=== PATIENT | male | born 1975 | race Caucasian/White ===

== ENCOUNTER 2019-03-13 13:59 | Emergency (ER) | payer SELFPAY ==
[2019-03-13 14:31] VITALS: BP 147/107; PULSE 90; RESP 16; TEMP 36.9; O2SAT 97; BMI 33.4
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
[2019-03-13 16:43] VITALS: BP 122/94; PULSE 77; RESP 18; O2SAT 96
== END 2019-03-13 16:28 | disposition home or self-care (01) ==
PROVIDERS: Emergency Provider Nurse Practitioner Family; Family Provider Family Medicine
DX: S16.1XXA Strain of muscle, fascia and tendon at neck level, initial encounter (principal); M25.512 Pain in left shoulder; V89.2XXA Person injured in unspecified motor-vehicle accident, traffic, initial encounter; Z87.891 Personal history of nicotine dependence
CPT/HCPCS: 71046; 72040; 73030; 99282

== ENCOUNTER 2019-10-08 19:37 | Emergency (ER) | payer BC, SELFPAY ==
[2019-10-08 19:41] VITALS: BP 174/114; PULSE 84; RESP 18; TEMP 36.3; O2SAT 97; BMI 38.0
[2019-10-08 19:50] VITALS: PULSE 85; RESP 16; O2SAT 99
--- NOTE | 2019-10-08 19:51 | ECG_ITS ---
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 Measurements Intervals [place] Rate: 80 P: 31 TN: 164 QRS: 72 QRSD: 105 T: 39 QT: 361 QTc: 418 Interpretive Statements SINUS RHYTHM Compared to ECG 05/19/2017 02:44:21 No significant changes Electronically Signed On 10-09-2019 12:43:25 CDT by Samantha Ordoñez M.D. [id number]
--- NOTE | 2019-10-08 19:53 | XRR_ITS ---
PROCEDURE INFORMATION: Exam: XR Chest, 1 View Exam date and time: 10/08/2019 8:22 PM Age: 43 years old Clinical indication: Chest pain; Additional info: Cp TECHNIQUE: Imaging protocol: XR of the chest Views: 1 view. COMPARISON: CR XR chest 2V* [id number] 03/13/2019 3:03 PM FINDINGS: Lungs: Unremarkable. No consolidation. Pleural space: Unremarkable. No pleural effusion. No pneumothorax. Heart/Mediastinum: Unremarkable. No cardiomegaly. Bones/joints: Unremarkable. XR/XR chest 1V [id number] IMPRESSION: No acute findings.
[2019-10-08 19:59] LABS: Basophils # 0.1 10^3/uL (0.0-0.1); Eosinophils # 0.1 10^3/uL (0.0-0.8); Eosinophils % 1.7 %; Hematocrit 46.5 % (42.0-52.0); Hemoglobin 15.6 g/dL (11.7-16.6); Lymphocytes # 3.7 10^3/uL (0.8-4.8); Lymphocytes % 44.1 %; Mean Corpuscular HGB Conc 33.5 g/dL (30.0-36.0); Mean Corpuscular Volume 83.3 fL (80-94); Mean Platelet Volume 9.3 fL (7.4-10.4); Monocytes # 0.6 10^3/uL (0.2-0.9); Monocytes % 7.4 %; Neutrophils # 3.76 10^3/uL (1.8-7.7); Neutrophils % 45.4 %; Nucleated Red Blood Cells % 0 %; Platelet Count 342 10^3/cmm (130-400); Red Blood Count 5.58 10^6/uL (4.1-5.3); White Blood Count 8.3 10^3/uL (4.0-10.0)
[2019-10-08 20:15] LABS: Alanine Aminotransferase 88 U/L (0-41); Albumin Level 4.7 g/dL (3.5-5.2); Alkaline Phosphatase 89 IU/L (40-130); Anion Gap 13.9 (5-19); Aspartate Amino Transferase 44 U/L (0-40); Blood Urea Nitrogen 13 mg/dL (6-20); Calcium 9.6 mg/dL (8.5-10.5); Carbon Dioxide 24 mmol/L (22-29); Chloride 103 mmol/L (98-107); D Dimer 0.33 ug/mIFEU (0-0.59); Glomerular Filtration Rate 81.6 mL/min (90-130); Glucose 133 mg/dL (65-115); Osmolality Calculated 282 mOsm/kg (285-295); Potassium 3.9 mmol/L (3.5-5.1); Sodium 137 mmol/L (136-145); Total Bilirubin 0.3 mg/dL (0.15-1.2); Total Protein 6.7 g/dL (6.6-8.7)
[2019-10-08 20:16] LABS: Troponin(5th) Baseline 6 ng/L (0-15)
[2019-10-08 20:53] VITALS: BP 119/90; PULSE 82; RESP 18; O2SAT 96
[2019-10-08 21:10] VITALS: BP 127/93; PULSE 83; RESP 18; O2SAT 96
--- NOTE | 2019-10-09 04:44 | ED_ITS ---
HPI - Chest Pain General: Chief Complaint: Chest Pain Stated Complaint: cp, arm tingling, dizzy Time Seen by Provider: 10/08/19 19:51 History of Present Illness: HPI narrative: 43-year-old male presents with a week of chest pain on and off. It was worse today. He has not had significant shortness of breath. The pain does not worsen with exertion, in fact he feels more of the arm tingling he gets, and discomfort while sitting, and at night. He has not associated with meals. No long car trips recently. He has had some cramping to mainly his left calf. No edema. No cough. No fever. MD complaint: chest pain Onset (ago): day(s) Timing of current episode: episodic Prior episodes: Yes Onset: during rest Pain location: left chest Pain radiation: left arm Severity: moderate Quality: aching Relieving factors: nothing Associated symptoms: Deny abdominal pain, dyspnea, fever(s), palpitations or vomiting Review of Systems Const: Denies: fever(s) Eyes: Denies: change in vision or blurry vision ENMT: Denies: odynophagia, swelling of lips/tongue, bleeding gums or sinus pain Card: Reports: chest pain; Denies: palpitations, irregular heart rhythm, edema or swelling of feet/ankles Resp: Denies: dyspnea GI: Denies: abdominal pain or vomiting : Denies: difficulty urinating, urinary urgency or hematuria Musc: Denies: neck pain, back pain, joint redness or joint warmth Skin/Breast: Denies: rash, pruritus or erythema Neuro: Denies: headache(s), dizziness, vertigo or confusion Psych: Denies: anxiety or visual hallucinations PFSH ED PFSH: Social History Smoking and tobacco status: former smoker Physical Exam Const: GENERAL APPEARANCE: well developed ORIENTATION/CONSCIOUSNESS: Yes oriented to person, Yes oriented to place and Yes oriented to time HENMT: COMMON NORMALS: normocephalic, external ears normal and Normal external nose present HEAD & SCALP: normocephalic FACE & SINUS: normal facial exam NOSE: Normal external nose present and No nasal discharge present EXTERNAL EAR: Yes external ears normal MOUTH: tongue normal Eye: COMMON NORMALS: Equal, round and reactive pupils present, EOMs intact bilaterally and conjunctivae normal EYELID: eyelids normal CONJUNCTIVA: Yes conjunctivae normal PUPIL: Yes Equal, round and reactive pupils present Neck/C-Spine: GENERAL: No tracheal deviation Chest: COMMONS NORMALS: normal inspection of the chest CHEST: No tenderness Resp: COMMON NORMALS: clear to auscultation bilaterally EFFORT & INSPECTION: No tachypneic, No respiratory distress, No retractions, No uses accessory muscles and No tracheal deviation AUSCULTATION: clear to auscultation bilaterally, no rhonchi, no wheezes and lung sounds not diminished Cardio: COMMON NORMALS: regular rate and regular rhythm RATE: regular rate RHYTHM: regular rhythm HEART SOUNDS: no murmurs PERIPHERAL PULSES: radial pulses present GI: INSPECTION: No abdominal distension AUSCULTATION: No Hyperactive bowel sounds present and No Hypoactive bowel sounds present PALPATION: No Guarding due to palpation present (GI) and No Rigid due to palpation PERCUSSION: no dullness to percussion and no tympanic to percussion Neuro: SENSORIUM/ORIENTATION: Yes oriented to person, Yes oriented to place and Yes oriented to time Psych: COMMON NORMALS: mental status grossly normal Skin: COMMON NORMALS: no rashes or lesions noted GENERAL SKIN EXAM: no rashes or lesions noted Course Vital Signs: Vital signs: Vital Signs Temperature 97.3 F L 10/08/19 19:41 Pulse Rate 83 10/08/19 21:10 Respiratory Rate 18 10/08/19 21:10 Blood Pressure 127/93 10/08/19 21:10 Pulse Oximetry 96 10/08/19 21:10 MDM - Chest Pain MDM Narrative: Medical decision making narrative: Patient with no prior history of coronary disease that we know of. He presents with chest discomfort on and off for the past week, worse tonight. His white blood cell count is 8.3. Hemoglobin 15.6. His troponin is negative. His chest x-ray is negative. He was hypertensive on arrival, and this improved on its own. He did not require treatment. Lab Data: Labs: Lab Results 10/08/19 10/08/19 10/08/19 Range/Units 18:50 18:50 18:50 WBC 8.3 (4.0-10.0) 10^3/ uL RBC 5.58 H (4.1-5.3) 10^6/u L Hgb 15.6 (11.7-16.6) g/dL Hct 46.5 (42.0-52.0) % MCV 83.3 (80-94) fL MCH 28.0 (28.0-34.0) pg MCHC 33.5 (30.0-36.0) g/dL RDW 13.0 (12.1-15.1) % Plt Count 342 (130-400) 10^3/c mm MPV 9.3 (7.4-10.4) fL Neut % (Auto) 45.4 % Lymph % (Auto) 44.1 % Winkler % (Auto) 7.4 % Eos % (Auto) 1.7 % Baso % (Auto) 1.0 % Neut # (Auto) 3.76 (1.8-7.7) 10^3/u L Lymph # (Auto) 3.7 (0.8-4.8) 10^3/u L Winkler # (Auto) 0.6 (0.2-0.9) 10^3/u L Eos # (Auto) 0.1 (0.0-0.8) 10^3/u L Baso # (Auto) 0.1 (0.0-0.1) 10^3/u L Nucleated RBC % (a uto) 0 % Nucleated RBCs # 0.0 /100WBC D-Dimer (0-0.59) ug/mIFE U Sodium 137 (136-145) mmol/L Potassium 3.9 (3.5-5.1) mmol/L Chloride 103 (98-107) mmol/L Carbon Dioxide 24 (22-29) mmol/L Anion Gap 13.9 (5-19) BUN 13 (6-20) mg/dL Creatinine 1.0 (0.7-1.2) mg/dL GFR Calculation 81.6 L (90-130) mL/min Glucose 133 H (65-115) mg/dL Calculated Osmolal ity 282 L (285-295) mOsm/k g Calcium 9.6 (8.5-10.5) mg/dL Total Bilirubin 0.3 (0.15-1.2) mg/dL AST 44 H (0-40) U/L ALT 88 H (0-41) U/L Alkaline Phosphata se 89 (40-130) IU/L Troponin T Baselin e 6 (0-15) ng/L Total Protein 6.7 (6.6-8.7) g/dL Albumin 4.7 (3.5-5.2) g/dL Globulin 2.0 (1.3-4.6) g/dL 10/08/19 Range/Units 18:50 WBC (4.0-10.0) 10^3/ uL RBC (4.1-5.3) 10^6/u L Hgb (11.7-16.6) g/dL Hct (42.0-52.0) % MCV (80-94) fL MCH (28.0-34.0) pg MCHC (30.0-36.0) g/dL RDW (12.1-15.1) % Plt Count (130-400) 10^3/c mm MPV (7.4-10.4) fL Neut % (Auto) % Lymph % (Auto) % Winkler % (Auto) % Eos % (Auto) % Baso % (Auto) % Neut # (Auto) (1.8-7.7) 10^3/u L Lymph # (Auto) (0.8-4.8) 10^3/u L Winkler # (Auto) (0.2-0.9) 10^3/u L Eos # (Auto) (0.0-0.8) 10^3/u L Baso # (Auto) (0.0-0.1) 10^3/u L Nucleated RBC % (a uto) % Nucleated RBCs # /100WBC D-Dimer 0.33 (0-0.59) ug/mIFE U Sodium (136-145) mmol/L Potassium (3.5-5.1) mmol/L Chloride (98-107) mmol/L Carbon Dioxide (22-29) mmol/L Anion Gap (5-19) BUN (6-20) mg/dL Creatinine (0.7-1.2) mg/dL GFR Calculation (90-130) mL/min Glucose (65-115) mg/dL Calculated Osmolal ity (285-295) mOsm/k g Calcium (8.5-10.5) mg/dL Total Bilirubin (0.15-1.2) mg/dL AST (0-40) U/L ALT (0-41) U/L Alkaline Phosphata se (40-130) IU/L Troponin T Baselin e (0-15) ng/L Total Protein (6.6-8.7) g/dL Albumin (3.5-5.2) g/dL Globulin (1.3-4.6) g/dL Discharge Plan Discharge Patient Disposition: Home Clinical Impression: Chest pain Qualifiers: Chest pain type: unspecified Qualified Code(s): R07.9 - Chest pain, unspecified Condition: Stable Prescriptions: No Action No Known Home Medications RF: 0 Discharge Orders: Discharge Order (Routine); Ordered 10/08/19 Ordered By: Cordell Mendez Referrals: Akin Gasca MD [Primary Care Provider] - 4-7 days Patient Instructions: Chest Pain (ED) Activity Restrictions/Additional Instructions: Troponin enzymes were negative today indicating no acute heart attack. Check your blood pressure twice daily for the next several days and report numbers to your physician. Return for worsening chest discomfort, shortness of breath, other concerning symptoms. 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
== END 2019-10-08 21:12 | disposition home or self-care (01) ==
PROVIDERS: Emergency Medicine; Emergency Provider Emergency Medicine; PCP Family Medicine
DX: R07.9 Chest pain, unspecified (principal); Z87.891 Personal history of nicotine dependence
CPT/HCPCS: 12345; 71045; 80053; 84484; 85025; 85378; 93005; 99283; 99284

== ENCOUNTER 2021-07-31 10:03 | Outpatient (CLI) | payer OTHER, SELFPAY ==
--- NOTE | 2021-07-31 | XR_ITS ---
WS: [id number] Cervical spine, AP, AP odontoid, lateral views in flexion, extension and neutral position, 07/31/2021 Clinical Data: CHRONIC NECK PAIN WITH NORMAL NEUROLOGICAL EXAMINATION Comparison: Cervical spine, 03/13/2019. Findings: No compression fractures are seen. The disc heights are normal. There is a small spur of th e anterior inferior C3 vertebral body. There is no prevertebral soft tissue swelling. The odontoid is unremarkable. The soft tissues of the neck and the lung apices are normal. On flexion and extension there is no limitation of motion or subluxation. XR/XR cervical spine 4-5V [id number] Impression: 1. Minimal spur of anterior inferior aspect of C3 vertebral body. 2. No limitation of motion or subluxation on flexion or extension.
== END 2021-07-31 10:04 | disposition home or self-care (01) ==
LOC: RADOUTREAD 08-01 10:12
PROVIDERS: PCP Family Medicine; Visit Provider Family Medicine
DX: M54.2 Cervicalgia (principal)
CPT/HCPCS: 72050

== ENCOUNTER 2021-08-21 17:53 | Emergency (ER) | payer BC, SELFPAY ==
[2021-08-21 18:09] VITALS: BP 150/100; PULSE 80; RESP 16; TEMP 36.9; O2SAT 97; BMI 38.4
--- NOTE | 2021-08-21 18:09 | ECG_ITS ---
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 Measurements Intervals [place] Rate: 74 P: 39 WV: 156 QRS: 60 QRSD: 101 T: 42 QT: 374 QTc: 416 Interpretive Statements SINUS RHYTHM INTERPRETATION BASED ON A DEFAULT AGE OF 40 YEARS Compared to ECG 10/08/2019 19:46:14 No significant changes Electronically Signed On 08-21-2021 22:30:26 CDT by Emerita Marr M.D. [email or web address].VisibleGains/store/NU/[id number] f
--- NOTE | 2021-08-21 18:09 | XRR_ITS ---
PROCEDURE INFORMATION: Exam: XR Chest Exam date and time: 08/21/2021 6:32 PM Age: 45 years old Clinical indication: Chest wall pain; Additional info: Cp TECHNIQUE: Imaging protocol: Radiologic exam of the chest. Views: 1 view. COMPARISON: CR XR chest 1V [id number] 10/08/2019 8:13 PM FINDINGS: Lungs: Unremarkable. No consolidation. Pleural spaces: Unremarkable. No pleural effusion. No pneumothorax. Heart/Mediastinum: Unremarkable. No cardiomegaly. Bones/joints: Unremarkable. XR/XR chest 1V portable [id number] IMPRESSION: No acute findings.
[2021-08-21 18:37] LABS: Basophils # 0.1 10^3/uL (0.0-0.1); Basophils % 0.7 %; Eosinophils # 0.1 10^3/uL (0.0-0.8); Eosinophils % 1.4 %; Hematocrit 44.5 % (42.0-52.0); Hemoglobin 15.4 g/dL (11.7-16.6); Lymphocytes # 2.4 10^3/uL (0.8-4.8); Lymphocytes % 26.2 %; Mean Corpuscular HGB Conc 34.6 g/dL (30.0-36.0); Mean Corpuscular Volume 80.9 fl (80-94); Mean Platelet Volume 9.6 fL (7.4-10.4); Monocytes # 0.7 10^3/uL (0.2-0.9); Monocytes % 7.4 %; Nucleated Red Blood Cells % 0 %; Platelet Count 355 10^3/cmm (130-400); Red Cell Distribution Width 13.4 % (12.1-15.1); White Blood Count 9.1 10^3/uL (4.0-10.0)
[2021-08-21 18:53] LABS: Troponin(5th) Baseline 8 ng/L (0-15)
[2021-08-21 19:47] LABS: Chloride 94 mmol/L (98-107); Globulin 6.4 g/dL (1.3-4.6); Glucose 156 mg/dL (65-115); Sodium 122 mmol/L (136-145); Total Bilirubin 0.5 mg/dL (0.15-1.2); Total Protein 9.4 g/dL (6.6-8.7)
[2021-08-21 19:59] LABS: Alanine Aminotransferase 52 U/L (0-41); Alkaline Phosphatase 121 IU/L (40-130); Anion Gap 9.8 (5-19); Aspartate Amino Transferase 53 U/L (0-40); Blood Urea Nitrogen 12 mg/dL (6-20); Calcium 8.8 mg/dL (8.5-10.5); Carbon Dioxide 23 mmol/L (22-29); Glomerular Filtration Rate 72.4 mL/min (90-130); Osmolality Calculated 257 mOsm/kg (285-295); Potassium 4.8 mmol/L (3.5-5.1)
--- NOTE | 2021-08-21 20:09 | ECG_ITS ---
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 Measurements Intervals [place] Rate: 69 P: 25 [place]: 164 QRS: 66 QRSD: 100 T: 42 QT: 391 QTc: 419 Interpretive Statements SINUS RHYTHM Compared to ECG 08/21/2021 18:08:35 No significant changes Electronically Signed On 08-21-2021 22:41:16 CDT by Emerita Marr M.D. [email or web address]/store/[id number]
--- NOTE | 2021-08-21 21:36 | W.ED.GENADLT ---
HPI - General Adult General: Chief complaint: General Medical Stated complaint: chest pain; n/v Time Seen by Provider: 08/21/21 21:20 Source: patient Mode of arrival: ambulatory Limitations: no limitations History of Present Illness: 45-year-old male states that over the last week he has been having body aches chills low-grade fevers. He states he been also having a cough and some sharp left-sided chest pain. States the pain is currently a 2 out of 10 and sharp in nature. He has had some mild shortness of breath. He states he had COVID roughly 5 to 6 months ago and has not really felt right since then. Denies any vomiting or diarrhea denies any headache. Associated symptoms: Reports chest pain; Deny headache(s), nausea, rash or vomiting Review of Systems Const: Reports: chills and body aches Eyes: Denies: blurry vision or eye discomfort ENMT: Denies: throat pain or dental pain Card: Reports: chest pain Resp: Reports: non-productive cough GI: Denies: abdominal pain, nausea, vomiting or diarrhea : Denies: dysuria Musc: Denies: neck pain or back pain Skin/Breast: Denies: rash Neuro: Denies: headache(s) Psych: Denies: depression Fito/Lymph: Denies: easy bruising All/Imm: Denies: urticaria PFSH ED PFSH: Medical History No pertinent past medical history Social History Smoking and tobacco status: former smoker Physical Exam Const: COMMON NORMALS: no acute distress, patient oriented x3 and healthy appearing HENMT: COMMON NORMALS: normocephalic and atraumatic HEAD & SCALP: normocephalic and atraumatic Eye: COMMON NORMALS: Equal, round and reactive pupils present and EOMs intact bilaterally PUPIL: Yes Equal, round and reactive pupils present Neck/C-Spine: COMMON NORMALS: full ROM and supple Chest: COMMONS NORMALS: normal inspection of the chest and normal palpation of entire chest wall Resp: COMMON NORMALS: normal respiratory effort, No retractions, No use of accessory muscles and clear to auscultation bilaterally AUSCULTATION: clear to auscultation bilaterally Cardio: COMMON NORMALS: regular rate, regular rhythm and No murmurs present (Cardio) RATE: regular rate RHYTHM: regular rhythm GI: COMMON NORMALS: Normal to inspection, nondistended, normoactive bowel sounds present, Soft to palpation, non-tender and no masses PALPATION: Yes Soft to palpation Extremity: COMMON NORMALS: normal to inspection and full ROM Neuro: COMMON NORMALS: patient oriented x3, moves all extremities and no focal motor deficits Psych: COMMON NORMALS: mental status grossly normal, Normal thought process present and cooperative THOUGHT PROCESS: Normal thought process present Skin: COMMON NORMALS: no rashes or lesions noted and no wounds GENERAL SKIN EXAM: no rashes or lesions noted Course Vital Signs: Vital signs: Vital Signs Temperature 98.4 F 08/21/21 18:09 Pulse Rate 80 08/21/21 18:09 Respiratory Rate 16 08/21/21 18:09 Blood Pressure 150/100 08/21/21 18:09 Pulse Oximetry 97 08/21/21 18:09 [facility] - General Adult Medical Decision Making Patient presents for chest pain that is atypical in nature. Also having some slight dyspnea his D-dimer here is negative no signs of aortic dissection or pulm embolism troponins are normal as well no signs of acute coronary syndrome he is well-appearing here feels improved he is stable for discharge and return if worsening. Lab Data : 08/21/21 18:24 08/21/21 22:52 Radiology Impressions Chest X-Ray 08/21/21 18:09 IMPRESSION: No acute findings. Laboratory Results WBC 9.1 10^3/uL (4.0-10.0) 08/21/21 18:24 RBC 5.50 10^6/uL (4.1-5.3) H 08/21/21 18:24 Hgb 15.4 g/dL (11.7-16.6) 08/21/21 18:24 Hct 44.5 % (42.0-52.0) 08/21/21 18:24 MCV 80.9 fl (80-94) 08/21/21 18:24 MCH 28.0 pg (28.0-34.0) 08/21/21 18:24 MCHC 34.6 g/dL (30.0-36.0) 08/21/21 18:24 RDW 13.4 % (12.1-15.1) 08/21/21 18:24 Plt Count 355 10^3/cmm (130-400) 08/21/21 18:24 MPV 9.6 fL (7.4-10.4) 08/21/21 18:24 Neut % (Auto) 64.0 % 08/21/21 18:24 Lymph % (Auto) 26.2 % 08/21/21 18:24 [place] % (Auto) 7.4 % 08/21/21 18:24 Eos % (Auto) 1.4 % 08/21/21 18:24 Baso % (Auto) 0.7 % 08/21/21 18: Neut # (Auto) 5.80 10^3/uL (1.8-7.7) 08/21/21 18: Lymph # (Auto) 2.4 10^3/uL (0.8-4.8) 08/21/21 18:24 [place] # (Auto) 0.7 10^3/uL (0.2-0.9) 08/21/21 18: Eos # (Auto) 0.1 10^3/uL (0.0-0.8) 08/21/21 18: Baso # (Auto) 0.1 10^3/uL (0.0-0.1) 08/21/21 18: Nucleated RBC % (auto) 0 % 08/21/21 18: Nucleated RBCs # 0.0 /100WBC 08/21/21 18:24 D-Dimer 0.37 ug/mIFEU (0-0.59) 08/21/21 18:24 Sodium 140 mmol/L (136-145) D 08/21/21 22:52 Potassium 3.6 mmol/L (3.5-5.1) 08/21/21 22:52 Chloride 107 mmol/L (98-107) 08/21/21 22:52 Carbon Dioxide 24 mmol/L (22-29) 08/21/21 22:52 Anion Gap 12.6 (5-19) 08/21/21 22:52 BUN 11 mg/dL (6-20) 08/21/21 22:52 Creatinine 0.8 mg/dL (0.7-1.2) 08/21/21 22:52 GFR Calculation 104.5 mL/min (90-130) 08/21/21 22:52 Glucose 92 mg/dL (65-115) 08/21/21 22:52 Calculated Osmolality 289 mOsm/kg (285-295) 08/21/21 22:52 Calcium 8.2 mg/dL (8.5-10.5) L 08/21/21 22:52 Total Bilirubin 0.5 mg/dL (0.15-1.2) 08/21/21 18:24 AST 53 U/L (0-40) H 08/21/21 18:24 ALT 52 U/L (0-41) H 08/21/21 18:24 Alkaline Phosphatase 121 IU/L (40-130) 08/21/21 18:24 Troponin T Baseline 8 ng/L (0-15) 08/21/21 18:24 Troponin T 120 Minute 6.00 ng/L (0-15) 08/21/21 21:19 Delta Troponin T -2.00 ABS# (0-10) L 08/21/21 21:19 Total Protein 9.4 g/dL (6.6-8.7) H 08/21/21 18:24 Albumin 3.0 g/dL (3.5-5.2) L 08/21/21 18:24 Globulin 6.4 g/dL (1.3-4.6) H 08/21/21 18:24 EKG Data EKG 1: I personally reviewed and interpreted this EKG as follows: EKG interpretation date: 08/21/21 EKG interpretation time: 21:41 Interpretation: nsr hr [address] or t wave abnormalities qrs 100 qtc 409 Computer generated interpretation: Chest X-Ray 08/21/21 18:09 IMPRESSION: No acute findings. Discharge Plan Discharge Patient Disposition: Home Clinical Impression: Chest pain Condition: Stable Prescriptions: No Action No Known Home Medications 0RF Discharge Orders: Discharge ED (Routine); Ordered 08/21/21 Ordered By: Sue Garcia Referrals: Akin Gasca MD [Primary Care Provider] - 1-3 days Discharge Diet: Advance as tolerated Discharge Activity: Resume usual activity Patient Instructions: Chest Pain (ED) Coding Level of Care Code ED Inside Sales Associate for Chg Fwd Exam Comprehensive
[2021-08-21 21:46] LABS: D Dimer 0.37 ug/mIFEU (0-0.59)
[2021-08-21] MEDS: ondansetron 2 mg/ML SDV 2 mL 4 MG IVP (22:03)
[2021-08-21] MEDS: sodium chloride 0.9% 1,000 ML 999 ML IV ×2 (22:03→22:11)
[2021-08-21 23:17] LABS: Anion Gap 12.6 (5-19); Blood Urea Nitrogen 11 mg/dL (6-20); Calcium 8.2 mg/dL (8.5-10.5); Carbon Dioxide 24 mmol/L (22-29); Chloride 107 mmol/L (98-107); Glomerular Filtration Rate 104.5 mL/min (90-130); Glucose 92 mg/dL (65-115); Osmolality Calculated 289 mOsm/kg (285-295); Potassium 3.6 mmol/L (3.5-5.1); Sodium 140 mmol/L (136-145)
[2021-08-22 00:46] LABS: Adenovirus Not Detected (NOT DETECT); Chlamydia Pneumoniae Not Detected (NOT DETECT); Coronavirus 229E,HKU1,NL63,OC4 Not Detected (NOT DETECT); Human Metapneumovirus Not Detected (NOT DETECT); Human Rhinovirus/Enterovirus Not Detected (NOT DETECT); Influenza A Not Detected (NOT DETECT); Influenza A H1 Not Detected (NOT DETECT); Influenza A H1-2009 Not Detected (NOT DETECT); Influenza A H3 Not Detected (NOT DETECT); Influenza B Not Detected (NOT DETECT); Mycoplasma Pneumoniae Not Detected (NOT DETECT); Parainfluenza Virus Type 1 Not Detected (NOT DETECT); Parainfluenza Virus Type 2 Not Detected (NOT DETECT); Parainfluenza Virus Type 3 Not Detected (NOT DETECT); Parainfluenza Virus Type 4 Not Detected (NOT DETECT); Respiratory Syncytial Virus A Not Detected (NOT DETECT); Respiratory Syncytial Virus B Not Detected (NOT DETECT); SARS-COV-2 Not Detected (NOT DETECT)
== END 2021-08-21 23:40 | disposition home or self-care (01) ==
PROVIDERS: Emergency Provider Emergency Medicine; PCP Family Medicine
DX: R07.9 Chest pain, unspecified (principal); Z87.891 Personal history of nicotine dependence
CPT/HCPCS: 71045; 80048; 80053; 84484; 85025; 85378; 87635; 93005; 96361; 96374; 99285; J2405; J7030

== ENCOUNTER 2023-04-18 19:45 | Emergency (ER) | payer BC, SELFPAY ==
[2023-04-18 19:48] VITALS: BP 147/90; PULSE 85; RESP 14; TEMP 36.8; O2SAT 95
--- NOTE | 2023-04-18 19:49 | ECG_ITS ---
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 Measurements Intervals [place] Rate: 85 P: 41 [place]: 162 QRS: 66 QRSD: 100 T: 37 QT: 354 QTc: 423 Interpretive Statements SINUS RHYTHM POSSIBLE RIGHT VENTRICULAR CONDUCTION DELAY [RSR (QR) IN V1/V2] Compared to ECG 08/21/2021 21:41:00 No significant changes Electronically Signed On 04-18-2023 23:42:48 CARDER BLANKETS by Edvin Villalba M.D. [id number]
--- NOTE | 2023-04-18 19:49 | XRR_ITS ---
PROCEDURE INFORMATION: Exam: XR Chest Exam date and time: 04/18/2023 8:24 PM Age: 47 years old Clinical indication: Angina pectoris; Patient HX: Mediastinal chest pain; No previous cardiac HX TECHNIQUE: Imaging protocol: Radiologic exam of the chest. Views: 1 view. COMPARISON: CR XR chest 1V portable [id number] 08/21/2021 6:32 PM FINDINGS: Lungs: Unremarkable. No consolidation. Pleural spaces: Unremarkable. No pleural effusion. No pneumothorax. Heart/Mediastinum: Unremarkable. No cardiomegaly. Bones/joints: There is mild degenerative disease of bilateral acromioclavicular joints. XR/XR chest 1V portable [id number] IMPRESSION: No acute cardiopulmonary process.
--- NOTE | 2023-04-18 20:11 | ED_ITS ---
HPI - Chest Pain 2 General: Chief Complaint: Chest Pain Stated Complaint: CP, Sob Time Seen by Provider: 04/18/23 20:04 Source: patient Mode of arrival: ambulatory Limitations: no limitations History of Present Illness: 47-year-old male states an hour ago he s tarted having sharp pain in the left side she states the pain lasted roughly 30 seconds he had felt hot he states and lightheaded. The pain is since resolved. He denies any shortness of breath denies any vomiting denies any diarrhea. Associated symptoms: Deny abdominal pain, dyspnea, fever(s), nausea or vomiting Review of Systems 2 Const: Denies: fever(s), chills, body aches or change in appetite ENMT: Denies: throat pain or dental pain Card: Reports: chest pain Resp: Denies: dyspnea GI: Denies: abdominal pain, nausea, vomiting or diarrhea Musc: Denies: neck pain or back pain Skin/Breast: Denies: rash Neuro: Denies: headache(s) PFSH ED 2 PFSH: Medical History No pertinent past medical history Social History Smoking and tobacco/nicotine status: former use of tobacco/nicotine Physical Exam 2 Const: COMMON NORMALS: patient oriented x3 HENMT: COMMON NORMALS: normocephalic and atraumatic HEAD & SCALP: n ormocephalic and atraumatic Eye: COMMON NORMALS: Equal, round and reactive pupils present and EOMs intact bilaterally PUPIL: Yes Equal, round and reactive pupils present Neck/C-Spine: COMMON NORMALS: full ROM and supple Chest: COMMONS NORMALS: normal inspection of the chest and normal palpation of entire chest wall Resp: COMMON NORMALS: normal respiratory effort, No retractions, No use of accessory muscles and clear to auscultation bilaterally AUSCULTATION: clear to auscultation bilaterally Cardio: COMMON NORMALS: regular rate, regular rhythm and No murmurs present (Cardio) RATE: regular rate RHYTHM: regular rhythm GI: COMMON NORMALS: Normal to inspection, nondistended, normoactive bowel sounds present, Soft to palpation, non-tender and no masses PALPATION: Yes Soft to palpation Extremity: COMMON NORMALS: normal to inspection and full ROM Neuro: COMMON NORMALS: patient oriented x3, moves all extremities and no focal motor deficits Psych: COMMON NORMALS: mental status grossly normal, Normal thought process present and cooperative THOUGHT PROCESS: Normal thought process present Skin: COMMON NORMALS: no rashes or lesions noted and no wounds GENERAL SKIN EXAM: no rashes or lesions noted Course 2 Vital Signs: Vital signs: Vital Signs Temperature 98.3 F 04/18/23 19:48 Pulse Rate 85 04/18/23 19:48 Respiratory Rate 14 04/18/23 19:48 Blood Pressure 147/90 04/18/23 19:48 Pulse Oximetry 95 04/18/23 19:48 Oxygen Delivery Me thod Room Air 04/18/23 19:48 MDM - Chest Pain Medical Decision Making Patient presents here with chest pain that lasted seconds and is atypical in nature his troponins and EKGs here are normal he has been chest pain-free here he is no signs of ACS or pulmonary embolism or dissection he is stable for discharge he is to follow-up with PCP next week and return if he has any more pain he understands agrees to plan Medical Records I reviewed the patient's medical records. Lab Data I reviewed the patient's lab results. 04/18/23 20:05 04/18/23 20:05 Radiology Impressions Chest X-Ray 04/18/23 19:49 IMPRESSION: No acute cardiopulmonary process. Laboratory Results WBC 8.45 10^3/uL (3.29-11.43) 04/18/23 20:05 RBC 5.55 10^6/uL (3.85-5.65) 04/18/23 20:05 Hgb 15.60 g/dL (11.27-16.99) 04/18/23 20:05 Hct 45.7 % (37-53) 04/18/23 20:05 MCV 82.3 fl (82-101) 04/18/23 20:05 MCH 28.1 pg (27-33) 04/18/23 20:05 MCHC 34.1 g/dL (30-55) 04/18/23 20:05 RDW 13.4 % (12.1-15.1) 04/18/23 20:05 Plt Count 333 10^3/cmm (157-399) 04/18/23 20:05 MPV 9.2 fL (7.4-10.4) 04/18/23 20:05 Neut % (Auto) 55.7 % 04/18/23 20:05 Lymph % (Auto) 34.8 % 04/18/23 20:05 [place] % (Auto) 6.9 % 04/18/23 20:05 Eos % (Auto) 1.4 % 04/18/23 20:05 Baso % (Auto) 0.8 % 04/18/23 20:05 Neut # (Auto) 4.71 10^3/uL (1.8-7.7) 04/18/23 20:05 Lymph # (Auto) 2.9 10^3/uL (0.8-4.8) 04/18/23 20:05 [place] # (Auto) 0.6 10^3/uL (0.2-0.9) 04/18/23 20:05 Eos # (Auto) 0.1 10^3/uL (0.0-0.8) 04/18/23 20:05 Baso # (Auto) 0.1 10^3/uL (0.0-0.1) 04/18/23 20:05 Nucleated RBC % (auto) 0 % 04/18/23 20:05 Nucleated RBCs # 0.0 /100WBC 04/18/23 20:05 Sodium 142 mmol/L (136-145) 04/18/23 20:05 Potassium 3.6 mmol/L (3.5-5.1) 04/18/23 20:05 Chloride 104 mmol/L (98-107) 04/18/23 20:05 Carbon Dioxide 27 mmol/L (22-29) 04/18/23 20:05 Anion Gap 14.6 (5-19) 04/18/23 20:05 BUN 20 mg/dL (6-20) 04/18/23 20:05 Creatinine 1.0 mg/dL (0.7-1.2) 04/18/23 20:05 GFR Calculation 80.1 mL/min (90-130) L 04/18/23 20:05 Glucose 126 mg/dL (65-115) H 04/18/23 20:05 Calculated Osmolality 298 mOsm/kg (285-295) H 04/18/23 20:05 Calcium 9.1 mg/dL (8.5-10.5) 04/18/23 20:05 Total Bilirubin 0.2 mg/dL (0.15-1.2) 04/18/23 20:05 AST 27 U/L (0-40) 04/18/23 20:05 ALT 54 U/L (0-41) H 04/18/23 20:05 Alkaline Phosphatase 80 U/L (40-130) 04/18/23 20:05 Troponin T Baseline < 6 ng/L (0-15) 04/18/23 20:05 Troponin T 120 Minute 10.17 ng/L (0-15) 04/18/23 21:28 Delta Troponin T 4.22599 ABS# (0-10) 04/18/23 21:28 Total Protein 7.0 g/dL (6.6-8.7) 04/18/23 20:05 Albumin 4.6 g/dL (3.5-5.2) 04/18/23 20:05 Globulin 2.4 g/dL (1.3-4.6) 04/18/23 20:05 All radiology interpretation(s) finalized by discharge EKG Data EKG 1: I personally reviewed and interpreted this EKG as follows: EKG interpretation date: 04/18/23 EKG interpretation time: 19:51 Interpretation: nsr hr [address] or t wave abnormalities qrs 100 qtc 397 EKG 2: I personally reviewed and interpreted this EKG as follows: EKG interpretation date: 04/18/23 EKG interpretation time: 21:54 Interpretation: nsr hr [address] or t wave abnormalities qrs 97 qtc 408 Discharge Plan Discharge Patient Disposition: Home Clinical Impression: Chest pain Condition: Stable Prescriptions: No Action No Known Home Medications Discharge Orders: Discharge ED (Routine); Ordered 04/18/23 Ordered By: Sue Garcia Referrals: Akin Gasca MD [Primary Care Provider] - 4-7 days Discharge Diet: Advance as tolerated Discharge Activity: Resume usual activity Patient Instructions: Chest Pain (ED) Coding Level of Care Code ED Tool Trouble Shooter for Catrachito Rojas
[2023-04-18 20:15] LABS: Basophils # 0.1 10^3/uL (0.0-0.1); Basophils % 0.8 %; Eosinophils # 0.1 10^3/uL (0.0-0.8); Eosinophils % 1.4 %; Hematocrit 45.7 % (37-53); Lymphocytes # 2.9 10^3/uL (0.8-4.8); Lymphocytes % 34.8 %; Mean Corpuscular HGB Conc 34.1 g/dL (30-55); Mean Corpuscular Hemoglobin 28.1 pg (27-33); Mean Corpuscular Volume 82.3 fl (82-101); Mean Platelet Volume 9.2 fL (7.4-10.4); Monocytes # 0.6 10^3/uL (0.2-0.9); Monocytes % 6.9 %; Neutrophils # 4.71 10^3/uL (1.8-7.7); Neutrophils % 55.7 %; Nucleated Red Blood Cells % 0 %; Platelet Count 333 10^3/cmm (157-399); Red Blood Count 5.55 10^6/uL (3.85-5.65); Red Cell Distribution Width 13.4 % (12.1-15.1); White Blood Count 8.45 10^3/uL (3.29-11.43)
[2023-04-18] MEDS: aspirin 81 mg Chew Tablet 324 MG PO (20:31)
[2023-04-18 20:39] LABS: Alanine Aminotransferase 54 U/L (0-41); Albumin Level 4.6 g/dL (3.5-5.2); Alkaline Phosphatase 80 U/L (40-130); Anion Gap 14.6 (5-19); Aspartate Amino Transferase 27 U/L (0-40); Blood Urea Nitrogen 20 mg/dL (6-20); Calcium 9.1 mg/dL (8.5-10.5); Carbon Dioxide 27 mmol/L (22-29); Chloride 104 mmol/L (98-107); Globulin 2.4 g/dL (1.3-4.6); Glomerular Filtration Rate 80.1 mL/min (90-130); Glucose 126 mg/dL (65-115); Osmolality Calculated 298 mOsm/kg (285-295); Potassium 3.6 mmol/L (3.5-5.1); Sodium 142 mmol/L (136-145); Total Bilirubin 0.2 mg/dL (0.15-1.2)
[2023-04-18 21:20] LABS: Troponin(5th) Baseline < 6 ng/L (0-15)
[2023-04-18 21:50] LABS: Troponin 5 2HR 10.17 ng/L (0-15)
--- NOTE | 2023-04-18 21:54 | ECG_ITS ---
[facility] Test Date: 2023-04-18 Pat Name: Thompson Mcconnell Department: Room: Gender: Male Nozzleman: : 1975 Requested By: Sue Garcia Order Number: [id number] Lolly MD: Edvin Villalba M.D. Measurements Intervals [place] Rate: 73 P: 22 SC: 166 QRS: 61 QRSD: 97 T: 35 QT: 382 QTc: 423 Interpretive Statements SINUS RHYTHM Compared to ECG 04/18/2023 19:51:18 No significant changes Electronically Signed On 04-18-2023 23:45:54 CODING ASSISTANT by Edvin Villalba M.D. [id number]
[2023-04-18 22:35] VITALS: BP 130/76; PULSE 76; RESP 18; O2SAT 95
== END 2023-04-18 22:11 | disposition home or self-care (01) ==
PROVIDERS: Emergency Provider Emergency Medicine; PCP Family Medicine
DX: R07.9 Chest pain, unspecified (principal); Z87.891 Personal history of nicotine dependence
CPT/HCPCS: 71045; 80053; 84484; 85025; 93005; 99285

== ENCOUNTER → 2024-05-20 17:51 | Outpatient (BNVA) | payer BC, SELFPAY | PROVIDERS: PCP Family Medicine; Visit Provider Family Medicine | DX: M25.531 Pain in right wrist (principal) | CPT/HCPCS: 73110 ==

== ENCOUNTER → 2024-05-24 14:46 | Outpatient (BNVA) | payer BC, SELFPAY | PROVIDERS: PCP Family Medicine; Visit Provider Nurse Practitioner | DX: S62.111A Displaced fracture of triquetrum [cuneiform] bone, right wrist, initial encounter for closed fracture (principal); X58.XXXA Exposure to other specified factors, initial encounter | CPT/HCPCS: 73110 ==

== ENCOUNTER → 2024-06-07 15:49 | Outpatient (BNVA) | payer BC, SELFPAY | PROVIDERS: PCP Family Medicine; Visit Provider Nurse Practitioner | DX: S62.111D Displaced fracture of triquetrum [cuneiform] bone, right wrist, subsequent encounter for fracture with routine healing (principal); X58.XXXD Exposure to other specified factors, subsequent encounter | CPT/HCPCS: 73110 ==

== ENCOUNTER 2024-06-26 04:20 | Emergency (ER) | payer BC, SELFPAY ==
--- NOTE | 2024-06-26 04:25 | ECG_ITS ---
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
--- NOTE | 2024-06-26 04:36 | XRR_ITS ---
PROCEDURE INFORMATION: Exam: XR Chest Exam date and time: 06/26/2024 4:46 AM Age: 48 years old Clinical indication: Chest pressure; Chest pain with dizziness. TECHNIQUE: Imaging protocol: Radiologic exam of the chest. Views: 1 view. COMPARISON: CR XR chest 1V portable [id number] 04/18/2023 8:24 PM FINDINGS: Lungs: Unremarkable. No consolidation. Pleural spaces: Unremarkable. No pleural effusion. No pneumothorax. Heart/Mediastinum: Unremarkable. No cardiomegaly. Bones/joints: Unremarkable. XR/XR chest 1V portable [id number] IMPRESSION: No acute findings.
[2024-06-26 04:40] VITALS: BP 115/64; PULSE 67; RESP 20; TEMP 36.6; O2SAT 96; BMI 32.5
[2024-06-26] MEDS: aspirin 81 mg Chew Tablet 324 MG PO (05:07)
[2024-06-26 05:08] LABS: Basophils # 0.1 10^3/uL (0.0-0.1); Basophils % 0.6 %; Eosinophils # 0.1 10^3/uL (0.0-0.8); Eosinophils % 1.7 %; Hematocrit 43.8 % (37-53); Lymphocytes # 2.5 10^3/uL (0.8-4.8); Lymphocytes % 30.1 %; Mean Corpuscular HGB Conc 33.6 g/dL (30-55); Mean Corpuscular Hemoglobin 27.9 pg (27-33); Mean Corpuscular Volume 83.1 fl (82-101); Monocytes # 0.6 10^3/uL (0.2-0.9); Monocytes % 7.2 %; Neutrophils # 4.98 10^3/uL (1.8-7.7); Nucleated Red Blood Cells % 0 %; Platelet Count 288 10^3/cmm (157-399); Red Blood Count 5.27 10^6/uL (3.85-5.65); Red Cell Distribution Width 13.4 % (12.1-15.1)
[2024-06-26 05:21] LABS: INR 0.95 (0.8-1.2)
[2024-06-26 05:22] LABS: Partial Thromboplastin Time 31.1 SECONDS (23.9-36.7)
[2024-06-26 05:26] LABS: Troponin(5th) Baseline < 6 ng/L (0-15)
[2024-06-26 05:40] LABS: Alanine Aminotransferase 22 U/L (0-41); Albumin Level 4.1 g/dL (3.5-5.2); Alkaline Phosphatase 78 U/L (40-130); Anion Gap 15.1 (5-19); Aspartate Amino Transferase 17 U/L (0-40); Blood Urea Nitrogen 15 mg/dL (6-20); Calcium 8.5 mg/dL (8.5-10.5); Carbon Dioxide 25 mmol/L (22-29); Chloride 105 mmol/L (98-107); Creatinine Clr Calc Pharmacy 116.8968; Globulin 2.5 g/dL (1.3-4.6); Glomerular Filtration Rate 90.1 mL/min (90-130); Glucose 128 mg/dL (65-115); NT Pro B Type Natriuretic Pept < 36 pg/mL (0-125); Osmolality Calculated 294 mOsm/kg (285-295); Potassium 4.1 mmol/L (3.5-5.1); Sodium 141 mmol/L (136-145); Total Bilirubin 0.3 mg/dL (0.15-1.2); Total Protein 6.6 g/dL (6.6-8.7)
--- NOTE | 2024-06-26 05:51 | W.ED.DIZZY ---
HPI - Dizziness General: Chief Complaint: Dizziness Stated Complaint: dizzy sweating SOB Time Seen by Provider: 06/26/24 04:36 History of Present Illness: HPI Narrative: Enedina presents with dizziness and a feeling of being off balance. The patient reports feeling dizzy, particularly when turning over, and describes the sensation as feeling off balance rather than the world spinning. The symptoms worsen with movement, as evidenced by the patient stating, On the way here, it was horrible. When lying still without moving, the patient notes that the symptoms eventually settle down. The patient also mentions sweating during the examination, which appears to be associated with the dizziness. No specific onset timing is provided, but the symptoms seem to be ongoing and significant enough to prompt this medical visit. The patient denies any chest pain and reports normal urination and bowel movements. The dizziness is significantly impacting the patient's daily functioning, as demonstrated by the difficulty experienced while traveling to the appointment. Related Data Home Medications ?Medication ?Instructions ?Recorded ?Confirmed semaglutide 0.25 mg or 0.5 mg (2 mg SUBCUT 05/20/24 06/07/24 mg/3 mL) subcutaneous pen injector Previous Rx's ?Medication ?Instructions ?Recorded meclizine 25 mg tablet 25 mg PO BID PRN dizziness #14 tabs 06/26/24 Allergies Allergy/AdvReac Type Severity Reaction Status Date / Time adhesive tape Allergy ALGY-Rash Verified 06/07/24 16:33 hydrocodone Allergy ADR-Agitate Verified 06/07/24 16:33 d PFSH ED PFSH: Medical History Triquetral chip fracture Wrist fracture, closed No pertinent past medical history Social History Smoking and tobacco/nicotine status: never used tobacco/nicotine Physical Exam Const: COMMON NORMALS: no acute distress, patient oriented x3, healthy appearing, alert and well nourished HENMT: COMMON NORMALS: normocephalic HEAD & SCALP: normocephalic Eye: COMMON NORMALS: EOMs intact bilaterally Neck/C-Spine: COMMON NORMALS: full ROM and supple Resp: COMMON NORMALS: normal respiratory effort, No retractions and clear to auscultation bilaterally AUSCULTATION: clear to auscultation bilaterally Cardio: COMMON NORMALS: regular rate, regular rhythm, No gallops present (Cardio) and No murmurs present (Cardio) RATE: regular rate RHYTHM: regular rhythm GI: COMMON NORMALS: Soft to palpation and non-tender PALPATION: Yes Soft to palpation Extremity: GENERAL: Yes normal exam except as noted Neuro: COMMON NORMALS: patient oriented x3 SENSORIUM/ORIENTATION: Yes alert CRANIAL NERVES: Yes CN normal except as noted OTHER: [place]-Hallpike positive to the left. Skin: COMMON NORMALS: no rashes or lesions noted GENERAL SKIN EXAM: no rashes or lesions noted Course Vital Signs: Vital signs: Vital Signs Temperature 97.8 F 06/26/24 04:40 Pulse Rate 67 06/26/24 04:40 Respiratory Rate 20 H 06/26/24 04:40 Blood Pressure 115/64 06/26/24 04:40 Pulse Oximetry 96 06/26/24 04:40 [facility] - Dizziness Medical Decision Making 48-year-old male presents to the emergency department for evaluation of dizziness, shortness of breath, and sweating. Patient presents with dizziness and feeling off balance, particularly when turning over or moving. Positive [place]-Hallpike maneuver elicited worsening of symptoms (dizziness, diaphoresis, and shortness of breath) and horizontal nystagmus. Condition attributed to formation of crystals in the semicircular canals of the inner ear. - Symptoms improve when stationary - Crystals settle on hair cells causing false sensation of movement 2. Treatment Plan: Gustavo maneuver instructions provided - Lay straight back, look up at the ceiling, wait until dizziness subsides - Turn head a quarter turn to the left, hold for 3 minutes - Turn head all the way to the left, hold for 3 minutes - Turn body to align with head, wait 3 more minutes - Continue quarter turns until facing the ceiling again - Repeat maneuver in both directions as needed 3. Medication Considerations: - Consider Meclizine for nausea if Gustavo maneuver fails - Patient informed of potential drowsiness and variable efficacy Lab Data 06/26/24 05:02 06/26/24 05:02 Radiology Impressions Chest X-Ray 06/26/24 04:36 IMPRESSION: No acute findings. Laboratory Results WBC 8.30 10^3/uL (3.29-11.43) 06/26/24 05:02 RBC 5.27 10^6/uL (3.85-5.65) 06/26/24 05:02 Hgb 14.70 g/dL (11.27-16.99) 06/26/24 05:02 Hct 43.8 % (37-53) 06/26/24 05:02 MCV 83.1 fl (82-101) 06/26/24 05:02 MCH 27.9 pg (27-33) 06/26/24 05:02 MCHC 33.6 g/dL (30-55) 06/26/24 05:02 RDW 13.4 % (12.1-15.1) 06/26/24 05:02 Plt Count 288 10^3/cmm (157-399) 06/26/24 05:02 MPV 9.0 fL (7.4-10.4) 06/26/24 05:02 Neut % (Auto) 60.0 % 06/26/24 05:02 Lymph % (Auto) 30.1 % 06/26/24 05:02 [place] % (Auto) 7.2 % 06/26/24 05:02 Eos % (Auto) 1.7 % 06/26/24 05:02 Baso % (Auto) 0.6 % 06/26/24 05:02 Neut # (Auto) 4.98 10^3/uL (1.8-7.7) 06/26/24 05:02 Lymph # (Auto) 2.5 10^3/uL (0.8-4.8) 06/26/24 05:02 [place] # (Auto) 0.6 10^3/uL (0.2-0.9) 06/26/24 05:02 Eos # (Auto) 0.1 10^3/uL (0.0-0.8) 06/26/24 05:02 Baso # (Auto) 0.1 10^3/uL (0.0-0.1) 06/26/24 05:02 Nucleated RBC % (auto) 0 % 06/26/24 05:02 Nucleated RBCs # 0.0 /100WBC 06/26/24 05:02 PT 13.40 SECONDS (12.1-14.9) 06/26/24 05:02 INR 0.95 (0.8-1.2) 06/26/24 05:02 APTT 31.1 SECONDS (23.9-36.7) 06/26/24 05:02 Sodium 141 mmol/L (136-145) 06/26/24 05:02 Potassium 4.1 mmol/L (3.5-5.1) 06/26/24 05:02 Chloride 105 mmol/L (98-107) 06/26/24 05:02 Carbon Dioxide 25 mmol/L (22-29) 06/26/24 05:02 Anion Gap 15.1 (5-19) 06/26/24 05:02 BUN 15 mg/dL (6-20) 06/26/24 05:02 Creatinine 0.9 mg/dL (0.7-1.2) 06/26/24 05:02 GFR Calculation 90.1 mL/min (90-130) 06/26/24 05:02 Glucose 128 mg/dL (65-115) H 06/26/24 05:02 Calculated Osmolality 294 mOsm/kg (285-295) 06/26/24 05:02 Calcium 8.5 mg/dL (8.5-10.5) 06/26/24 05:02 Total Bilirubin 0.3 mg/dL (0.15-1.2) 06/26/24 05:02 AST 17 U/L (0-40) 06/26/24 05:02 ALT 22 U/L (0-41) 06/26/24 05:02 Alkaline Phosphatase 78 U/L (40-130) 06/26/24 05:02 Troponin T Baseline < 6 ng/L (0-15) 06/26/24 05:02 NT-Pro-B Natriuret Pep < 36 pg/mL (0-125) 06/26/24 05:02 Total Protein 6.6 g/dL (6.6-8.7) 06/26/24 05:02 Albumin 4.1 g/dL (3.5-5.2) 06/26/24 05:02 Globulin 2.5 g/dL (1.3-4.6) 06/26/24 05:02 All radiology interpretation(s) finalized by discharge Discharge Plan Discharge Patient Disposition: Home Clinical Impression: Benign paroxysmal positional vertigo Qualifiers: Laterality: left Qualified Code(s): H81.12 - Benign paroxysmal vertigo, left ear Condition: Stable Prescriptions: New meclizine 25 mg tablet 25 mg PO BID PRN (Reason: dizziness) Qty: 14 0RF No Action semaglutide 0.25 mg or 0.5 mg (2 mg/3 mL) pen injector SUBCUT Discharge Orders: Discharge ED (Routine); Ordered 06/26/24 Ordered By: Jose Law Referrals: Akin Gasca MD [Primary Care Provider] - Discharge Diet: Advance as tolerated Discharge Activity: Increase activity as tolerated Patient Instructions: Opioid Safety, Pain Management Activity Restrictions/Additional Instructions: Please follow-up with your primary care physician as needed for management of BPPV. Return to the emergency department any new or worsening symptoms. Print Language: Swiss Coding Level of Care Code ED Miller Wood Flour for Catrachito Rojas
[2024-06-26] MEDS: meclizine 25 mg tablet 50 MG PO (06:24)
[2024-06-26 06:45] VITALS: BP 114/85; PULSE 71; O2SAT 95
== END 2024-06-26 06:20 | disposition home or self-care (01) ==
PROVIDERS: Emergency Provider General Practice; PCP Family Medicine
DX: H81.12 Benign paroxysmal vertigo, left ear (principal)
CPT/HCPCS: 71045; 80053; 83880; 84484; 85025; 85610; 85730; 93005; 99285; J8597; J9999